=== PATIENT | male | born 1960 | race Caucasian/White ===

== ENCOUNTER 2016-10-30 06:05 | Emergency (ER) | payer BC ==
[~2016-10-30] VITALS: Ht 185.4 cm; Wt 93.0 kg
[2016-10-30] MEDS ORDERED: DIAZ10TA PO (06:23)
--- NOTE | 2016-10-30 06:32 | NUR ---
PT AWAITING FOR MSE. SLURRED SPEECH, SIDERAILS UP.
--- NOTE | 2016-10-30 06:59 | NUR ---
PT REFUSED TO STAY, TAXI ARRIVED AND PT AMBULATED W/O DIFF, REFUSED TO WAIT FOR ACI.
[2016-10-30 07:01] VITALS: BP 131/90
== END 2016-10-30 07:02 | disposition home or self-care (01) ==
LOC: ER 06:05
DX: F10.129 Alcohol abuse with intoxication, unspecified (principal)
CPT/HCPCS: 99283; A4663

== ENCOUNTER 2017-06-21 16:21 | Inpatient (IN) | payer BC, OTHER ==
[~2017-06-21] VITALS: Ht 185.4 cm; Wt 95.3 kg
[~2017-06-21 16:21] MED LIST: DIAZ10TA PO
[2017-06-21] MEDS ORDERED: KETOROLAC TROMETHAMINE 30 MG INJ IM PRN (17:45)
[2017-06-21] MEDS ORDERED: LOPERAMIDE HCL 2 MG CAPSULE PO PRN ×2 (17:45)
[2017-06-21] MEDS ORDERED: MAG HYDROX/AL HYDROX/SIMETH 30 ML LIQUID UDC PO PRN (17:45)
[2017-06-21] MEDS ORDERED: ONDANSETRON 4 MG/2 ML VIAL IM PRN (17:45)
[2017-06-21] MEDS ORDERED: MAGNESIUM HYDROXIDE 30 ML LIQUID UDC PO PRN (17:45)
[2017-06-21] MEDS ORDERED: DIAZEPAM 10 MG TABLET PO PRN ×2 (17:45)
[2017-06-21] MEDS ORDERED: LORAZEPAM 2 MG/1 ML VIAL IM PRN (17:45)
[2017-06-21] MEDS ORDERED: MIRALAX 17 GM POWD.PACK PO PRN (17:45)
[2017-06-21] MEDS ORDERED: DIAZEPAM 5 MG TABLET PO PRN (17:45)
[2017-06-21] MEDS ORDERED: ACETAMINOPHEN 325 MG TABLET PO PRN (17:45)
[2017-06-21] MEDS ORDERED: ONDANSETRON ODT 4 MG TAB.RAPDIS SL PRN (17:45)
[2017-06-21] MEDS ORDERED: DICYCLOMINE HCL 20 MG TABLET PO PRN (17:45)
[2017-06-21] MEDS ORDERED: THIAMINE HCL 200 MG/2 ML VIAL IM ONE (17:45)
[2017-06-21 17:53] VITALS: BP 141/89
[2017-06-21] MEDS ORDERED: AMLO5TAB4 PO (18:00)
[2017-06-21] MEDS ORDERED: ARIP5TAB10 PO (18:04)
[2017-06-21] MEDS ORDERED: QUET200T PO (18:04)
[2017-06-21] MEDS ORDERED: TRAZ-147 PO (18:04)
[2017-06-21 18:21] LABS: *AMPHETAMINE, URINE NEGATIVE (NEGATIVE); *BARBITURATE, URINE NEGATIVE (NEGATIVE); *CANNABINOID, URINE NEGATIVE (NEGATIVE); *COCCAINE, URINE NEGATIVE (NEGATIVE); *OPIATE, URINE POSITIVE (NEGATIVE); *PHENCYCLIDINE SCREEN,URINE NEGATIVE (NEGATIVE)
[2017-06-21] MEDS: DIAZEPAM 10 MG TABLET PO SCH ×2 (18:40→20:56)
[2017-06-21] MEDS: CLONIDINE HCL 0.1 MG TABLET PO PRN (19:34)
[2017-06-21 20:00] VITALS: BP 174/121
[2017-06-21 20:08] LABS: BASOPHILS % (AUTO) 0.8 % (0.0-2.0); EOSINOPHILS # (AUTO) 0.3 K/uL (0.0-0.7); HEMATOCRIT 40.8 % (36.7-47.1); HEMOGLOBIN 14.1 g/dL (12.5-16.3); LYMPHOCYTES # (AUTO) 2.1 K/uL (20.0-40.0); LYMPHOCYTES % (AUTO) 33.5 % (20.5-51.5); MEAN CORPUSCULAR HEMOGLOBIN 32.7 uug (23.8-33.4); MEAN CORPUSCULAR HGB CONC 35 g/dL (32.5-36.3); MEAN CORPUSCULAR VOLUME 94.2 fL (73.0-96.2); MONOCYTES # (AUTO) 0.4 K/uL (2.0-10.0); MONOCYTES % (AUTO) 5.8 % (0.0-11.0); NEUTROPHILS # (AUTO) 3.4 K/uL (1.8-8.9); NEUTROPHILS % (AUTO) 54.9 % (38.5-71.5); PLATELET COUNT (AUTO) 238 K/uL (152-348); RED BLOOD CELL COUNT(AUTO) 4.33 MIL/uL (4.06-5.63); WHITE BLOOD COUNT (AUTO) 6.2 K/uL (3.6-10.2)
[2017-06-21 20:28] LABS: ETHANOL < 3 MG/DL (0-0)
[2017-06-21 20:33] LABS: ALANINE AMINOTRANSFERASE 29 U/L (16-63); ALKALINE PHOSPHATASE 54 U/L (50-136); ASPARTATE AMINOTRANSFERASE 22 U/L (15-37); BILIRUBIN,TOTAL 0.3 mg/dL (0.2-1.0); CARBON DIOXIDE 27 mmol/L (21-32); CHLORIDE 103 mmol/L (98-107); CREATININE 1.2 mg/dL (0.6-1.3); GLUCOSE 124 mg/dL (74-106); TOTAL PROTEIN, SERUM 7.1 g/dL (6.4-8.2); UREA NITROGEN, BLOOD 19 mg/dL (7-18)
[2017-06-21] MEDS: GABAPENTIN 300 MG CAPSULE PO SCH (20:56)
[2017-06-21] MEDS: METHOCARBAMOL 750 MG TABLET PO PRN (20:56)
[2017-06-22] VITALS (8 sets, daily range): BP systolic 115–161; BP diastolic 68–104
[2017-06-22] MEDS: MULTIVITAMINS,THERAPEUTIC TABLET PO SCH (08:25)
[2017-06-22] MEDS: GABAPENTIN 300 MG CAPSULE PO SCH ×2 (08:25→21:28)
[2017-06-22] MEDS: THIAMINE HCL 100 MG TABLET PO SCH (08:26)
[2017-06-22] MEDS: METHOCARBAMOL 750 MG TABLET PO PRN ×2 (08:26→17:34)
[2017-06-22] MEDS: FOLIC ACID 1 MG TABLET PO SCH (08:26)
[2017-06-22] MEDS: CLONIDINE HCL 0.1 MG TABLET PO PRN ×2 (08:26→17:41)
[2017-06-22] MEDS: AMLODIPINE 5 MG TABLET PO SCH (08:26)
[2017-06-22] MEDS: DIAZEPAM 10 MG TABLET PO SCH ×4 (08:30→21:28)
[2017-06-22] MEDS ORDERED: TUBERCULIN,PURIF.PROT.DERIV. 5 TU/0.1 ML TEST ID ONE (09:00)
[2017-06-22] MEDS ORDERED: QUETIAPINE FUMARATE 200 MG TABLET PO SCH (21:00)
[2017-06-22] MEDS: TRAZODONE 100 MG TABLET PO SCH (21:28)
[2017-06-22] MEDS: QUETIAPINE FUMARATE 100 MG TABLET PO SCH (21:29)
[2017-06-22] MEDS: CLONIDINE HCL 0.1 MG TABLET PO SCH (21:29)
[2017-06-23] MEDS: IBUPROFEN 600 MG TABLET PO PRN (02:21)
[2017-06-23] MEDS: DIAZEPAM 5 MG TABLET PO SCH ×3 (08:10→16:40)
[2017-06-23] MEDS: THIAMINE HCL 100 MG TABLET PO SCH (08:10)
[2017-06-23] MEDS: AMLODIPINE 5 MG TABLET PO SCH (08:10)
[2017-06-23] MEDS: FOLIC ACID 1 MG TABLET PO SCH (08:10)
[2017-06-23] MEDS: CLONIDINE HCL 0.1 MG TABLET PO SCH ×2 (08:10→20:42)
[2017-06-23] MEDS: GABAPENTIN 300 MG CAPSULE PO SCH ×2 (08:10→20:43)
[2017-06-23] MEDS: MULTIVITAMINS,THERAPEUTIC TABLET PO SCH (08:11)
[2017-06-23 08:31] VITALS: BP 158/104
[2017-06-23 12:00] VITALS: BP 138/90
[2017-06-23 12:06] LABS: HEPATITIS B SURFACE AG Negative (Negative)
[2017-06-23 16:00] VITALS: BP 154/106
[2017-06-23] MEDS: CLONIDINE HCL 0.1 MG TABLET PO PRN (17:35)
[2017-06-23 18:51] VITALS: BP 137/87
[2017-06-23 20:00] VITALS: BP 149/104
[2017-06-23] MEDS: QUETIAPINE FUMARATE 100 MG TABLET PO SCH (20:42)
[2017-06-23] MEDS: TRAZODONE 100 MG TABLET PO SCH (20:43)
[2017-06-23] MEDS ORDERED: DIAZEPAM 10 MG TABLET PO SCH (21:00)
[2017-06-23] MEDS ORDERED: AMLODIPINE 5 MG TABLET PO SCH (21:00)
[2017-06-24] VITALS: BP 159/107
[2017-06-24] MEDS: hydrALAZINE HCL 50 MG TABLET PO PRN (00:52)
[2017-06-24] MEDS: diphenhydrAMINE 50 MG CAPSULE PO PRN (01:15)
[2017-06-24 04:00] VITALS: BP 135/90
[2017-06-24] MEDS: MULTIVITAMINS,THERAPEUTIC TABLET PO SCH (08:36)
[2017-06-24] MEDS: DIAZEPAM 5 MG TABLET PO SCH ×3 (08:36→20:57)
[2017-06-24] MEDS: FOLIC ACID 1 MG TABLET PO SCH (08:36)
[2017-06-24] MEDS: CLONIDINE HCL 0.1 MG TABLET PO SCH ×3 (08:36→20:58)
[2017-06-24] MEDS: GABAPENTIN 300 MG CAPSULE PO SCH ×3 (08:36→20:58)
[2017-06-24] MEDS: THIAMINE HCL 100 MG TABLET PO SCH (08:36)
[2017-06-24] MEDS: AMLODIPINE 10 MG TABLET PO SCH (08:37)
[2017-06-24 09:26] VITALS: BP 152/104
[2017-06-24] MEDS: IBUPROFEN 600 MG TABLET PO PRN (11:30)
[2017-06-24 12:36] VITALS: BP 138/67
[2017-06-24 18:06] VITALS: BP 138/96
[2017-06-24 20:00] VITALS: BP 137/95
[2017-06-24] MEDS: QUETIAPINE FUMARATE 100 MG TABLET PO SCH (20:58)
[2017-06-24] MEDS: TRAZODONE 100 MG TABLET PO SCH (20:58)
[2017-06-25] VITALS (7 sets, daily range): BP systolic 137–147; BP diastolic 82–104
[2017-06-25] MEDS: CLONIDINE HCL 0.1 MG TABLET PO PRN ×2 (04:39→19:39)
[2017-06-25] MEDS: GABAPENTIN 300 MG CAPSULE PO SCH ×3 (08:33→20:45)
[2017-06-25] MEDS: CLONIDINE HCL 0.1 MG TABLET PO SCH ×3 (08:33→20:43)
[2017-06-25] MEDS: MULTIVITAMINS,THERAPEUTIC TABLET PO SCH (08:33)
[2017-06-25] MEDS: FOLIC ACID 1 MG TABLET PO SCH (08:34)
[2017-06-25] MEDS: AMLODIPINE 10 MG TABLET PO SCH (08:34)
[2017-06-25] MEDS: THIAMINE HCL 100 MG TABLET PO SCH (08:34)
[2017-06-25] MEDS: DIAZEPAM 5 MG TABLET PO SCH ×2 (08:34→20:44)
[2017-06-25] MEDS: IBUPROFEN 600 MG TABLET PO PRN (09:31)
[2017-06-25] MEDS: hydrALAZINE HCL 50 MG TABLET PO PRN (16:45)
[2017-06-25] MEDS: diphenhydrAMINE 50 MG CAPSULE PO PRN (20:44)
[2017-06-25] MEDS: QUETIAPINE FUMARATE 100 MG TABLET PO SCH (20:44)
[2017-06-25] MEDS: TRAZODONE 100 MG TABLET PO SCH (20:44)
[2017-06-26] MEDS: CLONIDINE HCL 0.1 MG TABLET PO PRN (03:19)
[2017-06-26 03:20] VITALS: BP 148/106
[2017-06-26 04:19] VITALS: BP 131/84
[2017-06-26 08:00] VITALS: BP 166/106
[2017-06-26] MEDS: THIAMINE HCL 100 MG TABLET PO SCH (08:59)
[2017-06-26] MEDS: MULTIVITAMINS,THERAPEUTIC TABLET PO SCH (08:59)
[2017-06-26] MEDS: AMLODIPINE 10 MG TABLET PO SCH (08:59)
[2017-06-26] MEDS: CLONIDINE HCL 0.1 MG TABLET PO SCH ×3 (08:59→20:37)
[2017-06-26] MEDS: GABAPENTIN 300 MG CAPSULE PO SCH ×3 (08:59→20:36)
[2017-06-26] MEDS: FOLIC ACID 1 MG TABLET PO SCH (08:59)
[2017-06-26] MEDS ORDERED: DIAZEPAM 5 MG TABLET PO SCH (09:00)
[2017-06-26 12:00] VITALS: BP 127/94
[2017-06-26 17:00] VITALS: BP 157/98
[2017-06-26] MEDS: hydrALAZINE HCL 50 MG TABLET PO PRN ×2 (17:12→23:48)
[2017-06-26] MEDS ORDERED: CLON0.1T14 PO (18:08)
[2017-06-26] MEDS ORDERED: AMLO10TA2 PO (18:08)
[2017-06-26] MEDS ORDERED: DICY20TA28 PO (18:08)
[2017-06-26] MEDS ORDERED: IBUP-1955 PO (18:08)
[2017-06-26] MEDS ORDERED: METH-406 PO (18:08)
[2017-06-26] MEDS ORDERED: GABA-534 PO ×2 (18:08)
[2017-06-26] MEDS ORDERED: DIPH50CA37 PO (18:08)
[2017-06-26 20:00] VITALS: BP 149/95
[2017-06-26] MEDS: TRAZODONE 100 MG TABLET PO SCH (20:36)
[2017-06-26] MEDS: QUETIAPINE FUMARATE 100 MG TABLET PO SCH (20:37)
[2017-06-27] VITALS: BP 135/101
[2017-06-27 00:48] VITALS: BP 109/65
[2017-06-27 04:00] VITALS: BP 138/94
[2017-06-27 08:00] VITALS: BP 139/90
[2017-06-27 08:11] VITALS: BP 139/98
[2017-06-27] MEDS: AMLODIPINE 10 MG TABLET PO SCH (08:11)
[2017-06-27] MEDS: FOLIC ACID 1 MG TABLET PO SCH (08:11)
[2017-06-27] MEDS: MULTIVITAMINS,THERAPEUTIC TABLET PO SCH (08:11)
[2017-06-27] MEDS: THIAMINE HCL 100 MG TABLET PO SCH (08:11)
[2017-06-27] MEDS: GABAPENTIN 300 MG CAPSULE PO SCH (08:11)
[2017-06-27] MEDS: CLONIDINE HCL 0.1 MG TABLET PO SCH (08:11)
== END 2017-06-27 09:17 | disposition home or self-care (01) | DRG 895 ==
LOC: SRC 16:21
PROVIDERS: ADMIT Internal Medicine; ATTEND Internal Medicine
PROC: HZ2ZZZZ Detoxification Services for Substance Abuse Treatment (ICD-10-PCS; principal; 2017-06-21)
PROC: HZ41ZZZ Group Counseling for Substance Abuse Treatment, Behavioral (ICD-10-PCS; 2017-06-23)
PROC: HZ31ZZZ Individual Counseling for Substance Abuse Treatment, Behavioral (ICD-10-PCS; 2017-06-24)
DX: F10.232 Alcohol dependence with withdrawal with perceptual disturbance (principal); I15.9 Secondary hypertension, unspecified; F31.9 Bipolar disorder, unspecified; F13.10 Sedative, hypnotic or anxiolytic abuse, uncomplicated; F11.23 Opioid dependence with withdrawal; E86.0 Dehydration; Y90.0 Blood alcohol level of less than 20 mg/100 ml; Z79.899 Other long term (current) drug therapy; Z81.1 Family history of alcohol abuse and dependence; Z90.49 Acquired absence of other specified parts of digestive tract; F90.9 Attention-deficit hyperactivity disorder, unspecified type; Z82.49 Family history of ischemic heart disease and other diseases of the circulatory system; Z87.01 Personal history of pneumonia (recurrent); F17.220 Nicotine dependence, chewing tobacco, uncomplicated; G47.00 Insomnia, unspecified; F41.9 Anxiety disorder, unspecified
CPT/HCPCS: 36415; 70030-TC; 80307; 80346; 80361; 83735; 85025; 86580; 86592; 86705; 86803; 87340; 87806; A4663; G0480; J1885; J3411; Q0163

== ENCOUNTER 2017-09-05 08:47 | Inpatient (IN) | payer BC, OTHER ==
[~2017-09-05] VITALS: Ht 185.4 cm; Wt 95.3 kg
[~2017-09-05 08:47] MED LIST changes: +AMLO10TA2 PO; +CLON0.1T14 PO; -DIAZ10TA PO; +DICY20TA28 PO; +DIPH50CA37 PO; +GABA-534 PO; +IBUP-1955 PO; +METH-406 PO; +QUET200T PO; +TRAZ-214 PO
--- NOTE | 2017-09-05 13:30 | NUR ---
PREADMISSION Pt 57 y/o male admitted for etoh and opiate withdrawal. Pt came from home and lives with his and kids. Pt alert and oriented to name, place, and time. Perrla. Skin warm and moist to touch. Respirations even and unlabored. Resting bilateral hand tremors noted. Observed pt tapping foot. Pt appears fidgety and uneasy with pressured responses noted. Pt states NKA. Pt is not intoxicated. Explained unit rules to pt with acknowledgment.
--- NOTE | 2017-09-05 13:42 | NUR ---
ADMISSION Pt 57 y/o male admitted for etoh and opiate withdrawal. Pt came from home and lives with his and kids. Pt alert and oriented to name, place, and time. Perrla. Skin warm and moist to touch. Respirations even and unlabored. Resting bilateral hand tremors noted. Observed pt tapping foot. Pt appears fidgety and uneasy with pressured responses noted. Pt states NKA. Pt is not intoxicated. Pt reported he is drinking : - vodka 1 pint/ day x 1.5 months and last time used on 09/04/17 and had 1 pint. total 16 years. -[place] po 10mg pills and takes 15-20 pills /day x 8 years. Last took 09/04/17 20 pills. Total 8 years. Pt also reports have HTN (2005), asthma. Pt denies any seizure history. Skin is clear. Pt states he drinks etoh because of stress, anxiety , and depression. Pt states the etoh is significantly impairingPt also stated he is using the [place] because of chronic pain from injury sustained around 2003. Pt states he wants to learn how to deal with stress and also anxiety, depression, stress, and family are triggers to relapse. Pt states as a results from etoh, he got a DUI on 02/05/17. Pt states attempted to get sober 10 times. Pt states"I've identified the major form of anxiety and stress." Pt states he has better coping skills now. Pt denies every having a seizure, withdrawal induced delirium, or withdrawal induced cardiac complications. But pt stated he was drinking etoh too much some time in 2003 and blacked out and fell down the stairs injuring his ribs. Pt's treatment history: [facility] in 05/2017 for several days and was able to stay sober for 1 month before relapse, [facility] ( pt does not remember when he was there) and was able to stay sober for 1 month before relapse, and was [place] but does not remember when and was also only able to remain sober 1 month before relapse. Pt denies any SI/SA/HI. Pt denies ever being put on a 5150. Pt states his withdrawal symptoms are : anxiety, runny nose, diarrhea, and depression. Initial DG=310/94 P=94 T=98.0 R=18 O2=95%@ra. Initial cows=9 ciwa=12. Pt was seen and evaluated by MD. Pt started on a 5 day valium taper today, prn ativan, and prn subutex. Oriented pt to unit and room. Addendum: 09/06/17 at 1122 by KARLIE WILSON RN ADDITIONAL Pt clarified more substances he used - Klonopin po unspecified dose x1 day. Last took in morning on 09/03/17. Pt states he received it from a friend. - Adderall po unspecified dose x1 day. Last took in morning on 09/03/17. Pt states he received it from a friend. Medical history: anxiety, bipolar, ADHD
[2017-09-05] MEDS ORDERED: 5 DAY TAPER VALIUM-SERENITY PROTOCOL PO PRN (13:45)
[2017-09-05] MEDS ORDERED: ONDANSETRON ODT 4 MG TAB.RAPDIS SL PRN (14:00)
[2017-09-05] MEDS ORDERED: BUPRENORPHINE HCL 2 MG TAB.SUBL SL PRN (14:00)
[2017-09-05] MEDS ORDERED: HYDROXYZINE PAMOATE 25 MG CAPSULE PO PRN (14:00)
[2017-09-05] MEDS ORDERED: METHOCARBAMOL 750 MG TABLET PO PRN (14:00)
[2017-09-05] MEDS ORDERED: IBUPROFEN 600 MG TABLET PO PRN (14:00)
[2017-09-05] MEDS ORDERED: LORAZEPAM 1 MG TABLET PO PRN ×2 (14:00)
[2017-09-05] MEDS ORDERED: THIAMINE HCL 200 MG/2 ML VIAL IM ONE (14:00)
[2017-09-05] MEDS ORDERED: MAG HYDROX/AL HYDROX/SIMETH 30 ML LIQUID UDC PO PRN (14:00)
[2017-09-05] MEDS ORDERED: MIRALAX 17 GM POWD.PACK PO PRN (14:00)
[2017-09-05] MEDS ORDERED: ONDANSETRON 4 MG/2 ML VIAL IM PRN (14:00)
[2017-09-05] MEDS ORDERED: DICYCLOMINE HCL 20 MG TABLET PO PRN (14:00)
[2017-09-05] MEDS ORDERED: MAGNESIUM HYDROXIDE 30 ML LIQUID UDC PO PRN (14:00)
[2017-09-05] MEDS ORDERED: LORAZEPAM 2 MG/1 ML VIAL IM PRN (14:00)
[2017-09-05] MEDS ORDERED: LOPERAMIDE HCL 2 MG CAPSULE PO PRN ×2 (14:00)
[2017-09-05 14:53] LABS: BASOPHILS % (AUTO) 0.3 % (0.0-2.0); EOSINOPHILS # (AUTO) 0.1 K/uL (0.0-0.7); EOSINOPHILS % (AUTO) 1.5 % (0.0-7.0); HEMATOCRIT 42.1 % (36.7-47.1); HEMOGLOBIN 14.3 g/dL (12.5-16.3); LYMPHOCYTES # (AUTO) 2.1 K/uL (20.0-40.0); MEAN CORPUSCULAR HEMOGLOBIN 32.3 uug (23.8-33.4); MEAN CORPUSCULAR HGB CONC 34 g/dL (32.5-36.3); MEAN CORPUSCULAR VOLUME 95.4 fL (73.0-96.2); MONOCYTES # (AUTO) 0.4 K/uL (2.0-10.0); NEUTROPHILS # (AUTO) 4.3 K/uL (1.8-8.9); NEUTROPHILS % (AUTO) 62.2 % (38.5-71.5); PLATELET COUNT (AUTO) 190 K/uL (152-348); RED BLOOD CELL COUNT(AUTO) 4.42 MIL/uL (4.06-5.63)
[2017-09-05 15:04] LABS: ALANINE AMINOTRANSFERASE 46 U/L (16-63); ALKALINE PHOSPHATASE 44 U/L (50-136); AMYLASE 18 U/L (25-115); ASPARTATE AMINOTRANSFERASE 28 U/L (15-37); BILIRUBIN,TOTAL 0.4 mg/dL (0.2-1.0); CARBON DIOXIDE 27 mmol/L (21-32); CHLORIDE 100 mmol/L (98-107); CREATININE 1.1 mg/dL (0.6-1.3); GLUCOSE 126 mg/dL (74-106); LIPASE 112 U/L (73-393); MAGNESIUM 1.9 mg/dL (1.8-2.4); POTASSIUM 4.6 mmol/L (3.5-5.1); TOTAL PROTEIN, SERUM 7.1 g/dL (6.4-8.2); UREA NITROGEN, BLOOD 16 mg/dL (7-18)
[2017-09-05 15:09] LABS: ETHANOL < 3 MG/DL (0-0)
[2017-09-05] MEDS: CLONIDINE HCL 0.1 MG TABLET PO PRN (15:37)
[2017-09-05] MEDS: DIAZEPAM 10 MG TABLET PO SCH ×4 (15:37→22:33)
--- NOTE | 2017-09-05 15:42 | NUR ---
PRN CATAPRES Pt anxious and restless. Not able to sit still. Catapres po prn per MD order given and tolerated well.
[2017-09-05 15:44] LABS: *AMPHETAMINE, URINE POSITIVE (NEGATIVE); *BARBITURATE, URINE NEGATIVE (NEGATIVE); *CANNABINOID, URINE NEGATIVE (NEGATIVE); *COCCAINE, URINE NEGATIVE (NEGATIVE); *OPIATE, URINE POSITIVE (NEGATIVE); *PHENCYCLIDINE SCREEN,URINE NEGATIVE (NEGATIVE)
[2017-09-05 16:00] VITALS: BP 153/94
--- NOTE | 2017-09-05 16:42 | NUR ---
PRN CATAPRES EVAL Pt states anxiety has decreased.
--- NOTE | 2017-09-05 18:43 | NUR ---
END OF SHIFT Pt 57 y/o male admitted for etoh and opiate withdrawal. Pt alert and oriented to name, place, and time. Perrla. Skin warm and moist to touch. Respirations even and unlabored. Resting bilateral hand tremors noted. Pt appears disheveled. Empty water bottles scattered throughout the room. Encouraged to maintain hygiene. Pt anxious and restless this afternoon. Pt observed mostly isolative to room today. Pt did not attend group activity. Pt was seen by MD today. Pt medication compliant. Pt is on a 5 day valium taper and is on day. Last ciwa =12 @1600. Bed on lowest position with side rails x2 up for safety. Pt received catapres po prn per MD order or anxiety this afternoon. Call light within reach.
--- NOTE | 2017-09-05 19:11 | NUR ---
Start of shift note Received report from day shift nurse. Pt is a 57 yo male, A+Ox4, presenting to [facility] for ETOH/Opiate withdrawal. Pt noted with restlessness, agitation, and anxiety. Pt has HX of HTN and Asthma which will be monitored during shift. Pt is on 5 day Valium taper, PRN Ativan, and PRN Subutex, tolerated well. Respirations even and unlabored. Will continue to monitor.
--- NOTE | 2017-09-05 20:02 | NUR ---
COWS: 8 and CIWA: 9. Pt noted with pulse between 81-100, chills, restlessness, enlarged pupils, fine tremors, anxiety, agitation, and sweat on forehead. Respirations even and unlabored. Will continue to monitor.
[2017-09-05 20:05] VITALS: BP 132/93
[2017-09-05] MEDS ORDERED: QUETIAPINE FUMARATE 100 MG TABLET PO SCH (21:00)
[2017-09-05] MEDS: TRAZODONE 100 MG TABLET PO SCH (22:02)
[2017-09-05] MEDS: QUETIAPINE FUMARATE 200 MG TABLET PO SCH (22:03)
[2017-09-05] MEDS: ARIPIPRAZOLE 5 MG TABLET PO SCH (22:03)
--- NOTE | 2017-09-06 00:27 | NUR ---
V/S refused and COWS and CIWA deferred for sleep. Respirations even and unlabored. Will continue to monitor.
--- NOTE | 2017-09-06 04:19 | NUR ---
V/S refused and CIWA and COWS deferred for sleep. Respirations even and unlabored. Will continue to monitor.
--- NOTE | 2017-09-06 06:58 | NUR ---
End of shift note Pt was continuously noted with agitation, restlessness, anxiety, fine tremors, and sweat on forehead. Pt remained in room for majority of shift except to get food from the kitchen and to go smoke on smoking patio. Pt remained cooperative and compliant with all aspects of treatment. Pt was not given any PRN medications during shift. Pt is on 5 day Valium taper, PRN Ativan, and PRN Subutex, tolerated well. Pt slept for a total of 5 HRS. Last COWS: 8 and Last CIWA: 9 @2000. Respirations even and unlabored. Will endorse to day shift nurse.
--- NOTE | 2017-09-06 07:28 | NUR ---
START OF SHIFT Pt 57 y/o male admitted for etoh and opiate withdrawal. Pt alert and oriented to name, place, and time. Perrla. Skin warm and moist to touch. Respirations even and unlabored. Resting bilateral hand tremors noted. Pt appears disheveled. Food wrappings and empty drink bottles scattered throughout the room. Encouraged to maintain hygiene. It was reported that pt slept for 5 hours last night. Last reported cows=8 ciwa=9 @ 1999. Pt is on a 5 day valium taper and is on day 2. Pt also on a prn ativan and prn subutex. Bed on lowest position with side rails x2 up for safety. Call light within reach.
[2017-09-06 08:00] VITALS: BP 165/109
--- NOTE | 2017-09-06 08:00 | NUR ---
CIWA/COWS ASSESSMENT cows=10 ciwa=11. Pt anxious and restless, fidgety in bed. Nasal congestion noted. Resting bilateral hand tremors noted. Pt irritable. Pt also with complaints of chills/ sweats.
[2017-09-06] MEDS: FOLIC ACID 1 MG TABLET PO SCH (08:11)
[2017-09-06] MEDS: THIAMINE HCL 100 MG TABLET PO SCH (08:11)
[2017-09-06] MEDS: DIAZEPAM 10 MG TABLET PO SCH ×3 (08:11→21:02)
[2017-09-06] MEDS: CLONIDINE HCL 0.1 MG TABLET PO PRN ×2 (08:11→13:09)
[2017-09-06] MEDS: MULTIVITAMINS,THERAPEUTIC TABLET PO SCH (08:11)
--- NOTE | 2017-09-06 08:27 | NUR ---
PRN CATAPRES Pt with nb=659/109. Catapres po prn per MD order given and tolerated well.
[2017-09-06] MEDS ORDERED: TUBERCULIN,PURIF.PROT.DERIV. 5 TU/0.1 ML TEST ID ONE (09:00)
--- NOTE | 2017-09-06 09:27 | NUR ---
PRN MARRY Pt with vh=572/104. MD aware with change to catapres prn and started norvasc 10mg po daily. Addendum: 09/06/17 at 1207 by KARLIE WILSON RN title correction PRN CATMADELAINE DILLARD
[2017-09-06] MEDS ORDERED: METHOCARBAMOL 750 MG TABLET PO PRN (11:30)
[2017-09-06] MEDS ORDERED: DICYCLOMINE HCL 20 MG TABLET PO PRN (11:30)
[2017-09-06] MEDS ORDERED: diphenhydrAMINE 50 MG CAPSULE PO PRN (11:30)
[2017-09-06] MEDS ORDERED: CLONIDINE HCL 0.1 MG TABLET PO PRN (11:30)
[2017-09-06] MEDS ORDERED: CLON0.1T14 PO (11:39)
[2017-09-06] MEDS ORDERED: AMLO10TA2 PO (11:39)
[2017-09-06] MEDS ORDERED: AMLODIPINE 10 MG TABLET PO SCH (11:45)
[2017-09-06] MEDS: AMLODIPINE 10 MG TABLET PO SCH (11:46)
[2017-09-06 12:00] VITALS: BP 161/104
--- NOTE | 2017-09-06 12:00 | NUR ---
CIWA/COWS ASSESSMENT cows=11 ciwa=11. Pt anxious and restless, fidgety in bed. Nasal congestion noted. Pt easily irritable and agitated, observed clenching teeth at times. Resting bilateral hand tremors noted. Pt also with complaints of chills/ sweats.
[2017-09-06 13:10] LABS: HEPATITIS B SURFACE AG Negative (Negative)
--- NOTE | 2017-09-06 13:10 | NUR ---
PRN CATAPRES ATIVAN Pt with ciwa=17. Pt irritable and agitated observed clenching teeth. Resting bilateral hand tremors noted. Pt cannot sit still. ativan 2mg po prn per MD order given and tolerated well. Pt with jy=726/104. Pt anxious and restless. Catapress po prn per MD order given and tolerated well.
--- NOTE | 2017-09-06 14:10 | NUR ---
PRN CATAPRES ATIVAN EVAL Pt with nw=971/100. ciwa=10. Pt irritable. Pt sitting still with some movement. Bilateral hand tremors. Pt states feels anxious but not as much as before.
[2017-09-06] MEDS: GABAPENTIN 300 MG CAPSULE PO SCH ×2 (14:14→21:02)
[2017-09-06 16:00] VITALS: BP 154/100
--- NOTE | 2017-09-06 16:00 | NUR ---
CIWA/COWS ASSESSMENT cows=11 ciwa=11. Pt anxious and restless, not able to lay still in bed. Pt easily irritable and agitated. Resting bilateral hand tremors noted. Pt with flat affect. Clenching teeth at times.
[2017-09-06 16:50] VITALS: BP 148/99
--- NOTE | 2017-09-06 18:23 | NUR ---
END OF SHIFT Pt 57 y/o male admitted for etoh and opiate withdrawal. Pt alert and oriented to name, place, and time. Perrla. Skin warm and moist to touch. Respirations even and unlabored. Resting bilateral hand tremors noted. Pt appears disheveled. Clothes and food wrappings scattered throughout the room. Encouraged to maintain hygiene. Pt irritable and agitated this morning. Pt observed mostly isolative to room today. Pt did not attend group activity. Pt was seen by MD today. Pt medication compliant. Pt is on a 5 day valium taper and is on day 2. Last ciwa =10@1600. Last cows=11@1600. Bed on lowest position with side rails x2 up for safety. Call light within reach.
[2017-09-06 18:49] VITALS: BP 148/99
--- NOTE | 2017-09-06 19:14 | NUR ---
Start of shift note Received report from day shift nurse. Pt is a 57 yo male, A+Ox4, presenting to [facility] for ETOH/Opiate withdrawal. Pt noted to be anxious, agitated, and restless. Pt has HX of HTN, Asthma, Anxiety, Bipolar, and ADHD which will be monitored during shift. Pt is on 5 day Valium, PRN Ativan, and PRN Subutex, tolerated well. Respirations even and unlabored. Will continue to monitor.
[2017-09-06 20:14] VITALS: BP 147/96
--- NOTE | 2017-09-06 20:14 | NUR ---
COWS: 10 and CIWA: 10. Pt noted with pulse between 81-100, chills, restlessness, enlarged pupils, mild discomfort, mild GI upset, fine tremors, yawning, anxiety, agitation, and sweat on forehead. Respirations even and unlabored. Will continue to monitor.
[2017-09-06] MEDS: QUETIAPINE FUMARATE 200 MG TABLET PO SCH (21:02)
[2017-09-06] MEDS: TRAZODONE 100 MG TABLET PO SCH (21:02)
[2017-09-06] MEDS: ARIPIPRAZOLE 5 MG TABLET PO SCH (21:02)
[2017-09-06] MEDS: IBUPROFEN 600 MG TABLET PO PRN (21:47)
--- NOTE | 2017-09-06 21:47 | NUR ---
PRN Motrin Pt reported 6/10 headache. Patient restless in bed with facial grimacing noted. PRN Motrin 600mg PO administered as ordered. Will monitor for effectiveness of medication.
--- NOTE | 2017-09-06 22:40 | NUR ---
PRN Motrin Reassessment Medication effective. Pt expresses reduction of headache to 3/10. No s/s of ASE noted at this time. Respirations even and unlabored. Will continue to monitor.
[2017-09-07] VITALS (8 sets, daily range): BP systolic 123–166; BP diastolic 72–118
--- NOTE | 2017-09-07 00:20 | NUR ---
V/S refused and CIWA and COWS deferred for sleep. Respirations even and unlabored. Will continue to monitor.
--- NOTE | 2017-09-07 02:41 | NUR ---
PRN TYLENOL AND CLONIDINE RE-ASSESSMENT PATIENT STATES TYLENOL HELPFUL. HEADACHE SUBSIDED AND PAIN IS TOLERABLE. PATIENT IS LESS ANXIOUS. BP IS NO 138/82. WILL CONTINUE TO MONITOR Addendum: 09/08/17 at 0543 by ARNOL ANTHONY LVN ERROR: WRONG TIME AND DATE
--- NOTE | 2017-09-07 04:22 | NUR ---
V/S refused and CIWA and COWS deferred for sleep. Respirations even and unlabored. Will continue to monitor.
--- NOTE | 2017-09-07 07:00 | NUR ---
End of shift note Pt was continuously noted with chills, restlessness, enlarged pupils, mild discomfort, fine tremors, yawning, anxiety, agitation, GI upset, and sweat on forehead. Pt remained in room for majority of shift except to get food from kitchen and to go smoke on smoking patio. Pt remained cooperative and compliant with all aspects of treatment. Pt was given PRN Motrin @2147. Pt is on 5 day Valium taper, PRN Ativan, and PRN Subutex, tolerated well. Pt slept for a total of 6 HRS. Last COWS: 10 and Last CIWA: 10 @1999. Respirations even and unlabored. Will endorse to day shift nurse.
--- NOTE | 2017-09-07 07:56 | NUR ---
Start of shift Patient 57 y/o male admitted for medically supervised withdrawal of ETOH, opiates, and benzos. He is on a 5 day Valium taper, PRN Ativan and PRN Subutex. He is tolerating well. His last COWS 10 and CIWA 10 at 1999. Pt A&O X4. Resp even and unlabored. Pt presents with moderate anxiety, mild agitation, restless, flushed face, sweating and chills, fine tremors, generalized body aches, back pain. Pt presents with flat affect and depressed mood. Encouraged pt to attend group therapies/sessions to learn new coping skills to prevent relapse. Pt reports NKA. FULL CODE. All safety precautions in place. Call light within reach. Bed lowest lock position. Fall precautions. Will continue to monitor for withdrawal symptoms.
[2017-09-07] MEDS: CLONIDINE HCL 0.1 MG TABLET PO PRN ×2 (08:21→09:49)
[2017-09-07] MEDS: MULTIVITAMINS,THERAPEUTIC TABLET PO SCH (08:21)
[2017-09-07] MEDS: IBUPROFEN 600 MG TABLET PO PRN ×2 (08:22→14:43)
[2017-09-07] MEDS: AMLODIPINE 10 MG TABLET PO SCH (08:22)
[2017-09-07] MEDS: DIAZEPAM 5 MG TABLET PO SCH ×4 (08:22→20:45)
[2017-09-07] MEDS: FOLIC ACID 1 MG TABLET PO SCH (08:22)
[2017-09-07] MEDS: GABAPENTIN 300 MG CAPSULE PO SCH ×3 (08:22→20:44)
[2017-09-07] MEDS: THIAMINE HCL 100 MG TABLET PO SCH (08:22)
[2017-09-07] MEDS: METHOCARBAMOL 500 MG TABLET PO PRN (08:23)
--- NOTE | 2017-09-07 08:26 | NUR ---
PRN CLONIDINE 0.1 MG PO FOR BP 166/111 PRN MOTRIN 600 MG PO FOR HEADACHE #5/10 PRN ROBAXIN 750 MG PO FOR GENERALIZED BODY ACHES AND BACK PAIN.
--- NOTE | 2017-09-07 09:30 | NUR ---
REASSESS CLONIDINE- BP REMAINS ELEVATED 150/116. DOSE NOT EFFECTIVE.
--- NOTE | 2017-09-07 09:31 | NUR ---
REASSESS MOTRIN- PT C/O HEAD ACHE #08/04. MEDICATION NOT AFFECTIVE. REASSESS ROBAXIN - PT REPORTS BODY ACHES IMPROVED.
--- NOTE | 2017-09-07 09:49 | NUR ---
PRN CLONIDINE 0.1 MG PO Q2 HOURS FOR HTN. BP 150/116
[2017-09-07] MEDS: ACETAMINOPHEN 325 MG TABLET PO PRN ×2 (09:54→16:22)
--- NOTE | 2017-09-07 09:55 | NUR ---
PRN TYLENOL 650 MG PO FOR HEADACHE #6/10 PRN VISTARIL 25 MG PO FOR ANXIETY
--- NOTE | 2017-09-07 10:50 | NUR ---
REASSESS CLONIDINE- BP REMAINS ELEVATED 155/111. CALLED AND NOTIFIED MD. DR. CHAMBERLAIN REPORTED HE WILL BE ON-SITE TO EVALUATE PT IN 10 MINUTES.
--- NOTE | 2017-09-07 10:55 | NUR ---
REASSES VISTARIL- PT REPORTS INCREASED ANXIETY, PACING HALLS, GROSS TREMORS, ELEVATED VITALS. MD NOTIFIED. REASSESS TYLENOL- HEADACHE REMAINS #08/04. MEDICATION NOT AFFECTIVE.
--- NOTE | 2017-09-07 12:00 | NUR ---
PRN HYDRALAZINE 10 MG PO FOR BP 160/109, HR 102
[2017-09-07] MEDS: hydrALAZINE HCL 10 MG TABLET PO PRN ×2 (12:02→20:46)
--- NOTE | 2017-09-07 13:00 | NUR ---
REASSESS HYDRALAZINE- BP IMPROVED 142/99. MEDICATION EFFECTIVE.
--- NOTE | 2017-09-07 13:19 | NUR ---
PRN medication; Patient reported 3 episodes of diarrhea. PRN Imodium 4mg PO given to prevent further diarrhea. Report given to primary nurse for re-assessment.
--- NOTE | 2017-09-07 14:20 | NUR ---
REASSESS IMODIUM- PT REPORTS DIARRHEA RESOLVED. NO MORE LOOSE STOOLS. MEDICATION EFFECTIVE.
--- NOTE | 2017-09-07 14:46 | NUR ---
PRN MOTRIN 600 MG PO FOR HEADACHE #7/10. PRN BENTYL 20 MG PO FOR STOMACH CRAMPS.
--- NOTE | 2017-09-07 15:45 | NUR ---
REASSESS MOTRIN- PT STATES HEADACHE #5-10 REASSESS BENTYL- STOMACH CRAMPS RESOLVED.
--- NOTE | 2017-09-07 16:25 | NUR ---
PRN TYLENOL 650 MG PO FOR HEADACHE #4-5/10
--- NOTE | 2017-09-07 17:25 | NUR ---
REASSESS TYLENOL- PT STATES HEADACHE REMAINS AT #4-5/10 MEDICATION MINIMALLY EFFECTIVE.
--- NOTE | 2017-09-07 18:34 | NUR ---
End of shift Patient 57 y/o male admitted for medically supervised withdrawal of ETOH, opiates, and benzos. He is on a 5 day Valium taper. He continues to have multiple side effects from detox. His last COWS 17 and CIWA 13 at 1600. Pt presents with moderate anxiety, agitation, restless, flushed face, sweating and chills, gross tremors, generalized body aches, headache and back pain. Pt presents with flat affect and depressed mood. Pt BP remained elevated throughout the day. PRN given today were; Clonidine, Motrin, Robaxin, Vistaril, Tylenol, Imodium, Bentyl and Hydralazine. Encouraged pt to attend group therapies/sessions to learn new coping skills to prevent relapse. Pt did not participate in group today. His withdrawal symptoms were too distracting. PO fluids 2338 ml, voids x4, BM x3. Pt reports NKA. FULL CODE. All safety precautions in place. Call light within reach. Bed lowest lock position. Fall precautions. Will continue to monitor for withdrawal symptoms. Will endorse to PM shift.
--- NOTE | 2017-09-07 19:30 | NUR ---
START OF SHIFT NOTE RECEIVED REPORT FROM DAY SHIFT NURSE. PATIENT IS A 57 YEAR OLD MALE ADMITTED FOR ETOH/OPIATE WITHDRAWAL. CONTINUE ON VALIUM TAPER. PATIENT WITH HISTORY OF HYPERTENSION. PATIENT HAD ELEVATED BLOOD PRESSURE AND WAS C/O HEADACHE DURING THE DAY. PATIENT WAS GIVEN PRN CLONIDINE X 2, MOTRIN X 2, TYLENOL X 2, ROBAXIN, HYDRALAZINE , VISTARIL , IMODIUM AND BENTYL. LAST COWS 17 AND CIWA 13. PATIENT PRESENTS WITH FLAT AFFECT, DEPRESSED MOOD, SAD, FLUSHED FACE, ANXIOUS, FIDGETY, RESTLESS, EYE AVOIDANT , DIFFICULTY CONCENTRATING, IRRITABLE , AGITATED, HEADACHE AND HAD ANOTHER EPISODE OF DIARRHEA. SAFETY MEASURES IN PLACE . CALL LIGHT IN REACH. WILL CONTINUE TO MONITOR
--- NOTE | 2017-09-07 19:44 | NUR ---
PRN IMODIUM ADMINISTRATION PATIENT C/O DIARRHEA . ENCOURAGE FLUIDS . WILL MONITOR FOR EFFECTIVENESS
--- NOTE | 2017-09-07 20:00 | NUR ---
COWS AND CIWA ASSESSMENT PATIENT PRESENTS WITH FLAT AFFECT, DEPRESSED MOOD, SAD, FLUSHED FACE, ANXIOUS, FIDGETY, RESTLESS, EYE AVOIDANT , DIFFICULTY CONCENTRATING, FINE TREMORS ON BILATERAL HANDS, IRRITABLE , AGITATED ,HEADACHE AND HAD ANOTHER EPISODE OF DIARRHEA. COWS 18 AND CIWA 19.
[2017-09-07] MEDS: ARIPIPRAZOLE 5 MG TABLET PO SCH (20:44)
[2017-09-07] MEDS: TRAZODONE 100 MG TABLET PO SCH (20:45)
[2017-09-07] MEDS: QUETIAPINE FUMARATE 200 MG TABLET PO SCH (20:45)
--- NOTE | 2017-09-07 20:46 | NUR ---
PRN HYDRALAZINE ADMINISTRATION PATIENT'S BLOOD PRESSURE IS 158/118 HR-95. WILL MONITOR FOR EFFECTIVENESS
--- NOTE | 2017-09-07 21:46 | NUR ---
PRN HYDRALAZINE RE-ASSESSMENT PATIENT'S BLOOD PRESSURE RECHECK . BP-140/94 AT THIS TIME. WILL CONTINUE TO MONITOR.
[2017-09-08] VITALS (8 sets, daily range): BP systolic 131–161; BP diastolic 82–111
--- NOTE | 2017-09-08 | NUR ---
COWS AND CIWA DEFERRED PATIENT SLEEPING . RESPIRATION EVEN AND UNLABORED. WILL CONTINUE TO MONITOR
[2017-09-08] MEDS: ACETAMINOPHEN 325 MG TABLET PO PRN ×2 (01:41→09:43)
--- NOTE | 2017-09-08 01:41 | NUR ---
COWS AND CIWA ASSESSMENT PATIENT WOKE UP ANXIOUS, SWEATING, RESTLESS, TREMULOUS, FACE FLUSHED C/O CHILLS, HEADACHE AND WANTING TO GO DOWN TO SMOKE. BP- 158/111. COWS 11 AND CIWA 12
--- NOTE | 2017-09-08 01:41 | NUR ---
PRN CLONIDINE AND TYLENOL ADMINISTRATION PATIENT C/O ANXIETY AND HEADACHE. BP-158/111. WILL MONITOR FOR EFFECTIVENESS
[2017-09-08] MEDS: CLONIDINE HCL 0.1 MG TABLET PO PRN ×3 (01:44→21:59)
--- NOTE | 2017-09-08 02:41 | NUR ---
PRN TYLENOL AND CLONIDINE RE-ASSESSMENT PATIENT STATES TYLENOL HELPFUL. HEADACHE SUBSIDED AND PAIN IS TOLERABLE. PATIENT IS LESS ANXIOUS. BP IS NO 138/82. WILL CONTINUE TO MONITOR
[2017-09-08] MEDS: diphenhydrAMINE 50 MG CAPSULE PO PRN ×2 (03:32→21:59)
--- NOTE | 2017-09-08 03:32 | NUR ---
PRN BENADRYL ADMINISTRATION PATIENT REQUESTS FOR SLEEP AID DUE TO DIFFICULTY GOING BACK TO SLEEP .WILL MONITOR FOR EFFECTIVENESS
--- NOTE | 2017-09-08 04:32 | NUR ---
PRN BENADRYL RE-ASSESSMENT PATIENT STILL AWAKE. BENADRYL INEFFECTIVE. PATIENT HE'LL KEEP TRYING.
--- NOTE | 2017-09-08 07:23 | NUR ---
END OF SHIFT NOTE PATIENT SLEPT 4 HOURS. FLUID INTAKE 1,605 ML. VOIDED X 2 . BM X 1. MONITORED PATIENT THROUGHOUT SHIFT. PATIENT SLEPT INTERMITTENTLY. PATIENT GOES DOWN TO SMOKE FREQUENTLY DURING SHIFT. SCHEDULED MEDICATION AND TAPER GIVEN ORDERED, NO ADVERSE REACTION . PATIENT WAS GIVEN PRN HYDRALAZINE AT 2046 FOR BP-158/118, EFFECTIVE AFTER AN HOUR. BP- 140/94 AFTER RE-ASSESSMENT. AT 0141, PATIENT C/O ANXIETY AND HEADACHE. BP NOTED 155/111, PRN CLONIDINE AND TYLENOL GIVEN, EFFECTIVE. BP WENT DOWN TO 138/82. PATIENT HAD DIFFICULTY GOING BACK TO SLEEP. PRN BENADRYL GIVEN AT 0331, INEFFECTIVE. SAFETY MEASURES IN PLACE . CALL LIGHT IN REACH. WILL CONTINUE TO MONITOR . LAST COWS 10 AND CI.
--- NOTE | 2017-09-08 07:40 | NUR ---
START OF SHIFT Rcvd endorse from ongoing nurse, client is in bed, sound asleep, easy to arouse RR 16, even, non-labored. He appears disheveled, flushed face and clammy skin. PRN medications administered and noted per protocol. Last CIWA / 10 @ 0400. Seizure precautions in place. Call light within reach. Will continue to monitor.
[2017-09-08] MEDS: METHOCARBAMOL 500 MG TABLET PO PRN (09:43)
[2017-09-08] MEDS: GABAPENTIN 300 MG CAPSULE PO SCH ×3 (09:43→21:59)
[2017-09-08] MEDS: AMLODIPINE 10 MG TABLET PO SCH (09:43)
[2017-09-08] MEDS: MULTIVITAMINS,THERAPEUTIC TABLET PO SCH (09:43)
[2017-09-08] MEDS: THIAMINE HCL 100 MG TABLET PO SCH (09:43)
--- NOTE | 2017-09-08 09:43 | NUR ---
PRN Robaxin 750mg PO for myalgia, Tylenol 650mg PO and Motrin 600mg PO for REID. Call light within reach.
[2017-09-08] MEDS: IBUPROFEN 600 MG TABLET PO PRN (09:44)
[2017-09-08] MEDS: FOLIC ACID 1 MG TABLET PO SCH (09:44)
[2017-09-08] MEDS: DIAZEPAM 5 MG TABLET PO SCH ×3 (09:44→21:59)
--- NOTE | 2017-09-08 09:45 | NUR ---
CIWA 16/COWS 11 Client presents with anxious mood, flat affect, tremors, sweats, agitation, difficulty concentrating, and avoidant gaze. Client reports pain on muscles and joints, restless legs, REID, nausea, decreased appetite, he feels very sad, and tired. Scheduled Valium 5mg PO administered. Call light within reach.
--- NOTE | 2017-09-08 10:43 | NUR ---
Reassess PRN Robaxin 750mg, Tylenol 650mg, and Motrin 600mg client reports slight relief from myalgia and REID. He is planning to attend group therapy this am. Call light within reach.
[2017-09-08] MEDS: hydrALAZINE HCL 10 MG TABLET PO PRN ×2 (12:46→21:58)
--- NOTE | 2017-09-08 12:46 | NUR ---
PRN Hydralazine HCl 10mg PO administered for BP 147/105. Client denies any RIED. Call light within reach.
--- NOTE | 2017-09-08 12:50 | NUR ---
CIWA 16 / COWS 10 Client present with anxiety, mb by increased BP 147/105, agitation, tremors, flushed face, nausea, clammy skin, restlessness, and difficulty concentrating. Will continue to monitor.
--- NOTE | 2017-09-08 13:28 | NUR ---
Client was prompted to attend group counseling sessions.
--- NOTE | 2017-09-08 13:46 | NUR ---
Reassess PRN Hydralazine HCl 10mg, BP 133/87. Call light within reach.
--- NOTE | 2017-09-08 16:45 | NUR ---
PRN Clonidine 01.mg PO administered for anxiety, agitation mb increased BP 145/105. [facility] Will continue to monitor.
--- NOTE | 2017-09-08 16:50 | NUR ---
CIWA 15 / COWS 11 Client present with anxiety, mb by increased BP 145/105, agitation, tremors, flushed face, nausea, clammy skin, restlessness, and difficulty concentrating. Will continue to monitor. PRN medication administered for anxiety, agitation.
--- NOTE | 2017-09-08 17:45 | NUR ---
Reassess PRN Clonidine 01.mg BP 133/96, P 78. Client continues to present with anxiety and agitation. Will continue to monitor.
--- NOTE | 2017-09-08 19:18 | NUR ---
END OF SHIFT Endorse client to incoming nurse, client is in room, a/o x 4, he continues to present with anxious mood, flat affect, agitation, tremors, flushed face, and difficulty concentrating. Last CIWA 15 / 11 @ 1600. Client is compliant with 2/3 of group therapy. Adequate PO fluid intake 2025ml, void x 5, stool x 1. Consumes 50-75% of meals. PRN administered and noted per protocol. Seizure precaution in place. call light within reach.
--- NOTE | 2017-09-08 19:30 | NUR ---
Start of Shift Pt admitted 09/05/17 for medically managed withdrawal from ETOH and Opiates. Pt is a Full Code, with NKAs and on a regular diet. Pt presents with a PMH of HTN, asthma, and a PPH of Anxiety, Bipolar D/o, and ADHD. Pt found in room, oriented x 4, but anxious and agitated/fidgety. Pt forehead with visible sweat, hands tremulous. Pt appears disheveled, with dirty clothes and clothes strewn about, odor in room. Pt is unshaven. Affect flat, thoughts loose and racing. Expression is worried with poor/avoidant eye contact. Pt appears older than stated age. Pt c/o H/A 2/10, yawning, not sleeping well previous night. Stress reduction and coping skills reviewed and pt educated, pt verbalizing acknowledgement. Full safety measures, fall and seizure, remain in place with bed in lowest position, locked and side rails up and padded x 2. Will monitor pt for duration of shift for any s/sxs of distress or w/d and promptly attend.
--- NOTE | 2017-09-08 20:00 | NUR ---
COWS/CIWA Assessment COWS 12, amb sweats, restlessness, anxiety, nasal congestion, dyspepsia, tremors, and yawning. CIWA 14, amb dyspepsia, hand tremors, diaphoresis, anxiety and agitation, itching, and H/A.
--- NOTE | 2017-09-08 21:58 | NUR ---
PRN Meds Appresoline 10mg PO for BP 161/108, Benedryl 50mg for insomnia, and Clonidine 0.1mg PO for anxiety given. Will continue to monitor, and reassess in 1 hour
[2017-09-08] MEDS: QUETIAPINE FUMARATE 200 MG TABLET PO SCH (21:59)
[2017-09-08] MEDS: ARIPIPRAZOLE 5 MG TABLET PO SCH (21:59)
[2017-09-08] MEDS: TRAZODONE 100 MG TABLET PO SCH (22:00)
--- NOTE | 2017-09-08 22:58 | NUR ---
PRN Reassessment Benedryl for insomnia, Appresoline for HTN and Clonidine for anxiety given 1 hour prior. At present pt reports decreased anxiety, r/o "drowsiness" and BP of 148/98. Meds effective. Will continue to monitor for any s/sx's w/d or distress.
[2017-09-09] VITALS (8 sets, daily range): BP systolic 108–161; BP diastolic 67–104
--- NOTE | 2017-09-09 | NUR ---
Midnight Rounds VS's obtained, COWS and CIWA deferred r/t pt sleeping/refused. RR 16, even and nonlabored. Will continue to monitor for all s/sx's distress or w/d, and promptly attend.
--- NOTE | 2017-09-09 04:00 | NUR ---
COWS/CIWA Assessment COWS 14, amb sweats, restlessness, anxiety, nasal congestion, dyspepsia, tremors, and yawning. CIWA 17, amb dyspepsia, hand tremors, diaphoresis, anxiety and agitation, itching, and H/A, 6/10.
[2017-09-09] MEDS: IBUPROFEN 600 MG TABLET PO PRN ×3 (04:19→21:12)
[2017-09-09] MEDS: CLONIDINE HCL 0.1 MG TABLET PO PRN ×3 (04:29→20:52)
[2017-09-09] MEDS: hydrALAZINE HCL 10 MG TABLET PO PRN ×3 (04:29→20:53)
--- NOTE | 2017-09-09 04:29 | NUR ---
PRN Meds Motrin 600mg PO for H/A, 6/10, Appresoline 10mg PO for BP 142/101, and Clonidine for anxiety given. Will continue to monitor pt, reassessing in 1 hour.
--- NOTE | 2017-09-09 05:29 | NUR ---
PRN Reassessment Clonidine 0.1mg PO for anxiety, Appresoline 10mg PO for HTN, and Motrin 600mg PO for H/A given 1 hour prior. Currently pt reports improvement in H/A, / with improved anxiety, HTN improved with BP 138/96. Meds effective.Will continue to monitor for any s/sx's distress or w/d.
--- NOTE | 2017-09-09 07:15 | NUR ---
End of Shift Endorsement given to [facility] day nurse. Pt admitted 09/05/17 for medically managed withdrawal from ETOH and Opiates. Pt remains on 5 day Valium taper. Pt presents with flat affect, appearing sad and worried. Pt cooperative, lacks insight to triggers, motivation to quit substance use. In addition to w/d symptons, BP issue with pt for shift (Hx of HTN). Appresoline PO and Clonidine PO given x 2 for BP, both times DBP > 100. H/A also treated. PRNs for shift include Appresoline PO x 2, Clonidine PO x2, Benedryl, and Motrin. Pt slept for 6 hrs with 1355 mls intake and 2 voids. Full safety measures remain in place.
--- NOTE | 2017-09-09 07:20 | NUR ---
Start Of Shift: Patient is a 57 yr old male who was admitted to [facility] on 09/05/17 for a medically supervised withdrawal from Alcohol ( Vodka) and opiates ( [place]). He continues on a 5 day Valium taper which has been well tolerated. Patient has a history of Hypertension and PRN meds given on PM shift : Hydralazine x2, Clonidine x2, Benadryl and Motrin. He slept for 6 hours and last COWS 14 and CIWA 17. he is awake at this time and voices no concerns or needs. Continue to follow MD plan of care and offer support as needed.
--- NOTE | 2017-09-09 08:00 | NUR ---
COWS 7/ CIWA 13 Patient withdrawal symptoms include bilateral hand tremors, anxiety, agitation, headache, sensitivity to light and restlessness.
[2017-09-09] MEDS: GABAPENTIN 300 MG CAPSULE PO SCH ×3 (08:28→20:53)
[2017-09-09] MEDS: FOLIC ACID 1 MG TABLET PO SCH (08:28)
[2017-09-09] MEDS: ACETAMINOPHEN 325 MG TABLET PO PRN ×2 (08:28→21:12)
[2017-09-09] MEDS: THIAMINE HCL 100 MG TABLET PO SCH (08:28)
[2017-09-09] MEDS: DIAZEPAM 5 MG TABLET PO SCH ×2 (08:29→20:56)
[2017-09-09] MEDS: AMLODIPINE 10 MG TABLET PO SCH (08:30)
[2017-09-09] MEDS: MULTIVITAMINS,THERAPEUTIC TABLET PO SCH (08:30)
--- NOTE | 2017-09-09 08:30 | NUR ---
PRN Tylenol Tylenol 650 MG Po given for C/O headache 07/04 will reassess
--- NOTE | 2017-09-09 09:30 | NUR ---
PRN Reassess Tylenol 650 mg po effective, headache pain level is now 2/10 Continue to monitor
[2017-09-09] MEDS: METHOCARBAMOL 500 MG TABLET PO PRN (12:01)
--- NOTE | 2017-09-09 12:03 | NUR ---
Robaxin PRN Robaxin 750 MG PO given for headache 08/04 will reassess Addendum: 09/09/17 at 1207 by SANTANA HOROWITZ RN Patient also states he is having lower back pain / spasms
--- NOTE | 2017-09-09 12:20 | NUR ---
COWS 8/ CIWA 15 Patients withdrawal symptoms present as Headache, back ache, stuffy nose, irritability, agitation, restlessness and anxiety
--- NOTE | 2017-09-09 12:30 | NUR ---
PRN Clonidine/Hydralazine Clonidine 0.1mg PO and Hydralazine 10MG Po given for BP 154/104, HR 78 Will reassess
--- NOTE | 2017-09-09 13:13 | NUR ---
Client was prompted to attend daily group counseling sessions.
--- NOTE | 2017-09-09 13:45 | NUR ---
PRN Reassess Clonidine 0.1MG PO and Hydralazine 10MG PO effective, BP now 108/67, HR 76 Continue to monitor
--- NOTE | 2017-09-09 15:30 | NUR ---
PRN Motrin Motrin 600 MG PO given for Headache 510 will reassess
--- NOTE | 2017-09-09 15:46 | NUR ---
COWS 7 / CIWA 13 Patient presents with withdrawal symptoms that include headache, irritability, elevated BP and flushed face.
--- NOTE | 2017-09-09 16:30 | NUR ---
Motrin Reassess Patient states he has no pain at this time, Motrin effective
--- NOTE | 2017-09-09 18:52 | NUR ---
End Of Shift : Patient is a 57 yr old male who was admitted to [facility] on 09/05/17 for a medically supervised withdrawal from Alcohol ( Vodka ) and Opiates ( [place]). He has a medical history of Hypertension which has been treated today with PRN Clonidine and Hydralazine in addition to his scheduled Norvasc. BP 154/104 but after PRN medications 108/67. He has complained of headaches throughout shift which has been alleviated with Motrin 600mg and Tylenol 650 MG . PRN medications given on this shift: Tylenol, Robaxin, Clonidine, Motrin and hydralazine. He has attended all groups today and is interacting with his peers. His withdrawal symptoms today have included anxiety and irritability, increased blood pressure and flushed face. He had a fluid intake of 1800 ML, 4 Voids and 0 BM. Last COWS 7 and CIWA 13 @ 1600. Continue to follow MD plan of care and offer support as needed. Endorsed to short goods drier.
--- NOTE | 2017-09-09 19:30 | NUR ---
START OF SHIFT Pt is a 57 y/o male admitted on 09/05/17 for ETOH and opiate withdrawal. Pt was on a 5 Valium taper, last dose tonight discontinued and is scheduled to be d/c tomorrow. Last COWS 7 and CIWA 13 and PRN Tylenol, Motrin, Robaxin, Clonidine and Hydralazine administered during day shift. Pt denies S/S of withdrawal but presents with anxiety, agitation, restlessness, tremors, insomnia, increased BP, intermittent sweats, unkempt room and flat affect. Medications due. Safety measures in place. Call light within reach. Will continue to monitor. Addendum: 09/10/17 at 0001 by FIDEL CONLEY RN ADDITIONAL: Pt also complains of left wrist, back pain and headache.
--- NOTE | 2017-09-09 20:00 | NUR ---
COWS 6 AND CIWA 10 Pt presents with anxiety, agitation, restlessness, tremors, insomnia, increased BP, intermittent sweats, intermittent headache.
[2017-09-09] MEDS: QUETIAPINE FUMARATE 200 MG TABLET PO SCH (20:52)
[2017-09-09] MEDS: diphenhydrAMINE 50 MG CAPSULE PO PRN (20:52)
[2017-09-09] MEDS: TRAZODONE 100 MG TABLET PO SCH (20:53)
--- NOTE | 2017-09-09 20:53 | NUR ---
APURVAN BENADRYL, CLONIDINE, HYDRALAZINE ADMINISTRATION Pt requests sleep aid, pt reports severe difficulty falling and staying asleep, anxiety, agitation, intermittent sweats. BP 161/100 and HR 83. Safety measures in place. Call light within reach. Will continue to monitor. Addendum: 09/10/17 at 0008 by FIDEL CONLEY RN Additional: Pt states, "I will only be able to fall asleep if I take my scheduled Trazodone and Seroquel along with Benadryl...That's what helped me sleep last night."
[2017-09-09] MEDS: ARIPIPRAZOLE 5 MG TABLET PO SCH (20:56)
--- NOTE | 2017-09-09 21:12 | NUR ---
PRN TYLENOL AND MOTRIN ADMINISTRATION Pt reports pain in left wrist, lower back and headache 8/10 overall pain. Pt reports that Motrin and Tylenol together was effective previously. Safety measures in place. Call light within reach. Will continue to monitor.
--- NOTE | 2017-09-09 21:53 | NUR ---
PRN BENADRYL, CLONIDINE AND HYDRALAZINE REASSESSMENT Pt remains awake, laying in bed watching TV. Pt states, "I am trying to let myself fall asleep." BP 128/84 and HR 79. Safety measures in place. Call light within reach. Will continue to monitor.
--- NOTE | 2017-09-09 22:53 | NUR ---
PRN TYLENOL AND MOTRIN REASSESSMENT Pt reports headache has ceased and pain in left wrist and lower back are tolerable. Safety measures in place. Call light within reach. Will continue to monitor.
[2017-09-10] VITALS: BP 126/82
--- NOTE | 2017-09-10 | NUR ---
COWS 5 AND CIWA 9 Pt presents with anxiety, agitation, restlessness. Pt is taking frequent smoking breaks.
[2017-09-10] MEDS ORDERED: HYDR-4075 PO (00:21)
--- NOTE | 2017-09-10 04:00 | NUR ---
COWS/CIWA DEFERRED AND VITALS REFUSED Pt laying in bed with eyes closed, COWS/CIWA deferred, to be assessed when pt is awake per orders. Vitals refused. Respirations even and unlabored. Safety measures in place. Call light within reach. Will continue to monitor.
[2017-09-10 05:40] VITALS: BP 147/106
[2017-09-10] MEDS: IBUPROFEN 600 MG TABLET PO PRN (05:44)
[2017-09-10] MEDS: METHOCARBAMOL 500 MG TABLET PO PRN (05:44)
--- NOTE | 2017-09-10 05:44 | NUR ---
PRN HYDRALAZINE, MOTRIN AND ROBAXIN ADMINISTERED BP 147/106 and HR 83. Pt complains of headache and body aches 08/04. Pt appears uncomfortable. Safety measures in place. Call light within reach. Will continue to monitor.
[2017-09-10] MEDS: hydrALAZINE HCL 10 MG TABLET PO PRN (05:45)
--- NOTE | 2017-09-10 06:44 | NUR ---
PRN HYDRALAZINE, MOTRIN AND ROBAXIN REASSESSMENT BP 131/84 and HR 79. Pt reports pain is at tolerable level, appears comfortable. Safety measures in place. Call light within reach. Will continue to monitor.
--- NOTE | 2017-09-10 07:06 | NUR ---
END OF SHIFT Pt is a 57 y/o male admitted on 09/05/17 for ETOH and opiate withdrawal. Pt finished a 5 Valium taper and is scheduled to be d/c today. Pt presented with anxiety, agitation, restlessness, tremors, insomnia, increased BP, intermittent sweats, unkempt room and flat affect. Pt had multiple smoke breaks throughout shift. Pt woke up at 0540 and requested for his vitals to be taken, pt states, I feel like my blood pressure is elevated, and complained of headache. Scheduled medications and PRN Benadryl, Clonidine, Hydralazine x 2, Robaxin, Tylenol and Motrin x 2 administered, effective in S/S of withdrawal AEB COWS 6 and CIWA 10 lowered to COWS 5 and CIWA 9. Pt slept 5 hours. Intake 855 ml, void x 2, stool x 0. Safety measures in place. Call light within reach. Pts needs have been met. Endorsed to day shift nurse.
--- NOTE | 2017-09-10 07:30 | NUR ---
Start of Shift Gym Supervisor received report on 57 year old male admitted 09/05/17 for medical management of ETOH and [place] withdrawals. Pt endorses NKA, full code and regular diet. Pt with PMH of HTN and Asthma, denies any seizure history. Endorses a PPH of anxiety, bipolar and ADHD. Pt has completed Subutex and Valium tapers in preparation of discharge this am. Pts last CIWA 9 and COWS 5 per report. Pt administered Benadryl(insomnia), Clonidine(HTN), Hydralazine(HTN) x2, Motrin(pain) x2, Tylenol(pain) and Robaxin(general muscle relief) as PRN medications on NOC, per report. Gym Supervisor encounters pt in hallway. Pt is A/O x4 and makes his needs known. Anxious and restless about discharge. Pt is planning on leaving to self care and states, I am going to go to IOP. Pt encouraged to wait for case management for appropriate discharge plan. Pt with a linear though process and clear speech pattern. Bed in low position with wheels locked and side rails up x2. Will continue to monitor, support and encourage according to plan of care.
--- NOTE | 2017-09-10 08:00 | NUR ---
CIWA 7/COWS 6 Pt is anxious and restless, at nurses station often. Will continue to monitor, support and encourage according to plan of care.
[2017-09-10 08:12] VITALS: BP 161/112
[2017-09-10 08:22] VITALS: BP 161/112
[2017-09-10] MEDS: CLONIDINE HCL 0.1 MG TABLET PO PRN (08:22)
[2017-09-10] MEDS: AMLODIPINE 10 MG TABLET PO SCH (08:22)
[2017-09-10] MEDS: MULTIVITAMINS,THERAPEUTIC TABLET PO SCH (08:22)
[2017-09-10] MEDS: GABAPENTIN 300 MG CAPSULE PO SCH (08:22)
[2017-09-10] MEDS: THIAMINE HCL 100 MG TABLET PO SCH (08:22)
[2017-09-10] MEDS: FOLIC ACID 1 MG TABLET PO SCH (08:22)
--- NOTE | 2017-09-10 08:22 | NUR ---
PRN Clonidine Pt's BP: 161/112. Pt administered medication per MD order and parameters. With pt tolerating well. Will continue to monitor, support and encourage according to plan of care.
--- NOTE | 2017-09-10 09:30 | NUR ---
PRN RE-Assessment BP: 131/88 P: 79. Stable for discharge
--- NOTE | 2017-09-10 10:26 | NUR ---
Discharge Pt educated on discharge diagnosis, education material and importance of continued sobriety and follow-up care. Pt educated and provided written material related to pt's discharge diagnosis and treatment plan. Pt educated on medication name, route, dose, time and indication. Pt denies any further comments, questions or concerns. Pt is anxious and cooperative with process. Pt is needy and pushes for paperwork to be completed. At nurses station often. Pt with a linear thought process and cleat speech pattern. A/O x4 and makes needs known. Pr denies HI/SI or A/VH. Pt is escorted to the main lobby where pt is providing for his own transportation home. Pt endorses going to an [facility] for aftercare program and refuses all attempts by discharge planning to coordinate a discharge care plan.
== END 2017-09-10 10:26 | disposition home or self-care (01) | DRG 895 ==
LOC: SRC 13:13
PROVIDERS: ADMIT Family Medicine Addiction Medicine; ATTEND Family Medicine Addiction Medicine
PROC: HZ2ZZZZ Detoxification Services for Substance Abuse Treatment (ICD-10-PCS; principal; 2017-09-05)
PROC: HZ41ZZZ Group Counseling for Substance Abuse Treatment, Behavioral (ICD-10-PCS; 2017-09-08)
PROC: HZ31ZZZ Individual Counseling for Substance Abuse Treatment, Behavioral (ICD-10-PCS; 2017-09-08)
DX: F10.239 Alcohol dependence with withdrawal, unspecified (principal); F33.2 Major depressive disorder, recurrent severe without psychotic features; F11.23 Opioid dependence with withdrawal; Y90.0 Blood alcohol level of less than 20 mg/100 ml; I10 Essential (primary) hypertension; F41.9 Anxiety disorder, unspecified; Z82.3 Family history of stroke; Z79.899 Other long term (current) drug therapy; Z81.8 Family history of other mental and behavioral disorders; Z72.0 Tobacco use; Z87.81 Personal history of (healed) traumatic fracture; R73.9 Hyperglycemia, unspecified
CPT/HCPCS: 36415; 70030-TC; 80307; 80324; 80346; 80361; 83690; 83735; 85025; 86580; 86592; 86705; 86803; 87340; 87806; G0480; J3411; Q0163

== ENCOUNTER 2018-01-06 11:42 | Inpatient (IN) | payer BC, OTHER ==
[~2018-01-06] VITALS: Ht 185.4 cm; Wt 89.4 kg
[~2018-01-06 11:42] MED LIST changes: -AMLO10TA2 PO; +AMLO10TA6 PO; +HYDR-4075 PO
[2018-01-06 13:00] VITALS: BP 171/102
[2018-01-06 14:25] VITALS: BP 168/102
[2018-01-06] MEDS ORDERED: LORAZEPAM 2 MG/1 ML VIAL IM PRN (14:30)
[2018-01-06] MEDS ORDERED: THIAMINE HCL 200 MG/2 ML VIAL IM ONE (14:30)
[2018-01-06] MEDS ORDERED: ONDANSETRON 4 MG/2 ML VIAL IM PRN (14:30)
[2018-01-06] MEDS ORDERED: MAG HYDROX/AL HYDROX/SIMETH 30 ML LIQUID UDC PO PRN (14:30)
[2018-01-06] MEDS ORDERED: MAGNESIUM HYDROXIDE 30 ML LIQUID UDC PO PRN (14:30)
[2018-01-06] MEDS: THIAMINE HCL 100 MG TABLET PO SCH (14:30)
[2018-01-06] MEDS ORDERED: DIAZEPAM 5 MG TABLET PO PRN (14:30)
[2018-01-06] MEDS ORDERED: ONDANSETRON ODT 4 MG TAB.RAPDIS SL PRN (14:30)
[2018-01-06] MEDS ORDERED: 5 DAY TAPER VALIUM-SERENITY PROTOCOL PO PRN (14:30)
[2018-01-06] MEDS ORDERED: DIAZEPAM 10 MG TABLET PO PRN ×2 (14:30)
[2018-01-06] MEDS ORDERED: diphenhydrAMINE 50 MG CAPSULE PO PRN (14:30)
[2018-01-06] MEDS ORDERED: LOPERAMIDE HCL 2 MG CAPSULE PO PRN ×2 (14:30)
[2018-01-06] MEDS: DIAZEPAM 10 MG TABLET PO SCH ×3 (14:53→20:43)
[2018-01-06] MEDS ORDERED: GABA600T2 PO (14:55)
[2018-01-06] MEDS: AMLODIPINE 10 MG TABLET PO SCH (15:01)
[2018-01-06 15:10] LABS: *AMPHETAMINE, URINE NEGATIVE (NEGATIVE); *BARBITURATE, URINE NEGATIVE (NEGATIVE); *CANNABINOID, URINE NEGATIVE (NEGATIVE); *COCCAINE, URINE NEGATIVE (NEGATIVE); *OPIATE, URINE POSITIVE (NEGATIVE); *PHENCYCLIDINE SCREEN,URINE NEGATIVE (NEGATIVE)
[2018-01-06 16:40] LABS: BASOPHILS % (AUTO) 0.5 % (0.0-2.0); EOSINOPHILS # (AUTO) 0.1 K/uL (0.0-0.7); EOSINOPHILS % (AUTO) 1.1 % (0.0-7.0); HEMATOCRIT 44.2 % (36.7-47.1); HEMOGLOBIN 15.4 g/dL (12.5-16.3); LYMPHOCYTES # (AUTO) 1.7 K/uL (20.0-40.0); LYMPHOCYTES % (AUTO) 23.8 % (20.5-51.5); MEAN CORPUSCULAR HEMOGLOBIN 33.9 uug (23.8-33.4); MEAN CORPUSCULAR HGB CONC 35 g/dL (32.5-36.3); MEAN CORPUSCULAR VOLUME 97.5 fL (73.0-96.2); MONOCYTES # (AUTO) 0.4 K/uL (2.0-10.0); MONOCYTES % (AUTO) 5.2 % (0.0-11.0); NEUTROPHILS % (AUTO) 69.4 % (38.5-71.5); PLATELET COUNT (AUTO) 234 K/uL (152-348); RED BLOOD CELL COUNT(AUTO) 4.53 MIL/uL (4.06-5.63); WHITE BLOOD COUNT (AUTO) 7.2 K/uL (3.6-10.2)
[2018-01-06] MEDS ORDERED: ARIP5TAB10 PO (16:46)
[2018-01-06 16:54] LABS: ALANINE AMINOTRANSFERASE 48 U/L (16-63); ALKALINE PHOSPHATASE 49 U/L (50-136); AMYLASE 35 U/L (25-115); ASPARTATE AMINOTRANSFERASE 32 U/L (15-37); BILIRUBIN,TOTAL 0.3 mg/dL (0.2-1.0); CARBON DIOXIDE 26 mmol/L (21-32); CHLORIDE 103 mmol/L (98-107); CREATININE 1.1 mg/dL (0.6-1.3); GLUCOSE 125 mg/dL (74-106); LIPASE 416 U/L (73-393); POTASSIUM 3.8 mmol/L (3.5-5.1); TOTAL PROTEIN, SERUM 7.3 g/dL (6.4-8.2); UREA NITROGEN, BLOOD 21 mg/dL (7-18)
[2018-01-06] MEDS: GABAPENTIN 300 MG CAPSULE PO SCH (17:02)
[2018-01-06 17:03] LABS: THYROID STIMULATING HORMONE 0.854 mIU/mL (0.358-3.740)
[2018-01-06] MEDS: CLONIDINE HCL 0.1 MG TABLET PO PRN (17:03)
[2018-01-06 17:06] LABS: ETHANOL < 3 MG/DL (0-0)
[2018-01-06 18:00] VITALS: BP 158/99
[2018-01-06] MEDS: METHOCARBAMOL 750 MG TABLET PO PRN (19:40)
[2018-01-06] MEDS ORDERED: TRAZ300T2 PO (19:43)
[2018-01-06] MEDS ORDERED: QUET200T PO (19:43)
[2018-01-06 20:00] VITALS: BP 142/98
[2018-01-06] MEDS ORDERED: QUETIAPINE FUMARATE 200 MG TABLET PO ONE (21:00)
[2018-01-07] VITALS (7 sets, daily range): BP systolic 135–162; BP diastolic 88–112
[2018-01-07] MEDS: CLONIDINE HCL 0.1 MG TABLET PO PRN ×2 (04:00→20:03)
[2018-01-07] MEDS ORDERED: hydrALAZINE HCL 25 MG TABLET PO ONE (05:15)
[2018-01-07 06:10] LABS: HEPATITIS B SURFACE AG Negative (Negative)
[2018-01-07] MEDS: THIAMINE HCL 100 MG TABLET PO SCH (08:14)
[2018-01-07] MEDS: MULTIVITAMINS,THERAPEUTIC TABLET PO SCH (08:14)
[2018-01-07] MEDS: AMLODIPINE 10 MG TABLET PO SCH (08:14)
[2018-01-07] MEDS: GABAPENTIN 300 MG CAPSULE PO SCH ×3 (08:14→16:28)
[2018-01-07] MEDS: DIAZEPAM 5 MG TABLET PO SCH ×4 (08:15→20:04)
[2018-01-07] MEDS: METHOCARBAMOL 750 MG TABLET PO PRN ×2 (08:18→16:31)
[2018-01-07] MEDS: FOLIC ACID 1 MG TABLET PO SCH (08:55)
[2018-01-07] MEDS ORDERED: TUBERCULIN,PURIF.PROT.DERIV. 5 TU/0.1 ML TEST ID ONE (09:00)
[2018-01-07] MEDS: hydrALAZINE HCL 25 MG TABLET PO PRN (16:38)
[2018-01-07] MEDS: QUETIAPINE FUMARATE 200 MG TABLET PO SCH (20:42)
[2018-01-08] VITALS: BP 139/99
[2018-01-08 04:00] VITALS: BP 138/97
[2018-01-08 08:00] VITALS: BP 158/109
[2018-01-08] MEDS: METHOCARBAMOL 750 MG TABLET PO PRN ×2 (08:51→19:43)
[2018-01-08] MEDS: THIAMINE HCL 100 MG TABLET PO SCH (08:51)
[2018-01-08] MEDS: IBUPROFEN 600 MG TABLET PO PRN (08:51)
[2018-01-08] MEDS: AMLODIPINE 10 MG TABLET PO SCH (08:52)
[2018-01-08] MEDS: FOLIC ACID 1 MG TABLET PO SCH (08:52)
[2018-01-08] MEDS: MULTIVITAMINS,THERAPEUTIC TABLET PO SCH (08:52)
[2018-01-08] MEDS: hydrALAZINE HCL 25 MG TABLET PO PRN ×2 (08:52→19:43)
[2018-01-08] MEDS: DIAZEPAM 5 MG TABLET PO SCH ×3 (08:53→20:37)
[2018-01-08] MEDS: GABAPENTIN 300 MG CAPSULE PO SCH ×3 (08:53→16:37)
[2018-01-08 12:00] VITALS: BP 139/106
[2018-01-08] MEDS: CLONIDINE HCL 0.1 MG TABLET PO PRN (12:19)
[2018-01-08 16:00] VITALS: BP 138/104
[2018-01-08 20:11] VITALS: BP 159/100
[2018-01-08] MEDS: QUETIAPINE FUMARATE 200 MG TABLET PO SCH (20:37)
[2018-01-08] MEDS: HYDROXYZINE PAMOATE 25 MG CAPSULE PO PRN (22:45)
[2018-01-08] MEDS: ropiniROLE 1 MG TABLET PO PRN (22:45)
[2018-01-09 08:00] VITALS: BP 148/101
[2018-01-09] MEDS: FOLIC ACID 1 MG TABLET PO SCH (08:17)
[2018-01-09] MEDS: hydrALAZINE HCL 25 MG TABLET PO PRN ×2 (08:18→16:39)
[2018-01-09] MEDS: MULTIVITAMINS,THERAPEUTIC TABLET PO SCH (08:18)
[2018-01-09] MEDS: HYDROXYZINE PAMOATE 25 MG CAPSULE PO PRN (08:18)
[2018-01-09] MEDS: GABAPENTIN 300 MG CAPSULE PO SCH ×3 (08:18→16:37)
[2018-01-09] MEDS: IBUPROFEN 600 MG TABLET PO PRN ×2 (08:18→16:37)
[2018-01-09] MEDS: METHOCARBAMOL 750 MG TABLET PO PRN ×2 (08:18→16:37)
[2018-01-09] MEDS: THIAMINE HCL 100 MG TABLET PO SCH (08:19)
[2018-01-09] MEDS: AMLODIPINE 10 MG TABLET PO SCH (08:19)
[2018-01-09] MEDS: DIAZEPAM 5 MG TABLET PO SCH ×2 (08:19→21:50)
[2018-01-09 12:00] VITALS: BP 142/104
[2018-01-09] MEDS: CLONIDINE HCL 0.1 MG TABLET PO PRN ×2 (12:07→19:52)
[2018-01-09 16:00] VITALS: BP 147/107
[2018-01-09 20:11] VITALS: BP 141/109
[2018-01-09] MEDS: QUETIAPINE FUMARATE 200 MG TABLET PO SCH (21:50)
[2018-01-10] MEDS: hydrALAZINE HCL 25 MG TABLET PO PRN ×3 (06:34→19:39)
[2018-01-10 08:00] VITALS: BP 132/87
[2018-01-10] MEDS: MULTIVITAMINS,THERAPEUTIC TABLET PO SCH (08:31)
[2018-01-10] MEDS: THIAMINE HCL 100 MG TABLET PO SCH (08:31)
[2018-01-10] MEDS: GABAPENTIN 300 MG CAPSULE PO SCH ×3 (08:31→16:36)
[2018-01-10] MEDS: FOLIC ACID 1 MG TABLET PO SCH (08:31)
[2018-01-10] MEDS: METHOCARBAMOL 750 MG TABLET PO PRN ×2 (08:36→16:38)
[2018-01-10] MEDS ORDERED: DIAZEPAM 5 MG TABLET PO SCH (09:00)
[2018-01-10] MEDS: AMLODIPINE 10 MG TABLET PO SCH (09:22)
[2018-01-10 12:00] VITALS: BP_SYST 113; BP_SYST 142; BP_DIAS 114; BP_DIAS 60
[2018-01-10] MEDS ORDERED: METH-406 PO (13:35)
[2018-01-10] MEDS ORDERED: HYDR25TA86 PO (13:35)
[2018-01-10] MEDS ORDERED: GABA600T2 PO (13:35)
[2018-01-10] MEDS ORDERED: AMLO10TA6 PO (13:35)
[2018-01-10] MEDS ORDERED: HYDR-3895 PO (13:35)
[2018-01-10] MEDS ORDERED: CLON0.1T14 PO (13:35)
[2018-01-10 16:00] VITALS: BP 145/71
[2018-01-10 20:11] VITALS: BP 153/109
[2018-01-10] MEDS: ropiniROLE 1 MG TABLET PO PRN (22:12)
[2018-01-10] MEDS: QUETIAPINE FUMARATE 200 MG TABLET PO SCH (22:13)
[2018-01-11] MEDS: IBUPROFEN 600 MG TABLET PO PRN (06:00)
[2018-01-11 08:00] VITALS: BP 147/108
[2018-01-11] MEDS: AMLODIPINE 10 MG TABLET PO SCH (08:11)
[2018-01-11] MEDS: MULTIVITAMINS,THERAPEUTIC TABLET PO SCH (08:11)
[2018-01-11] MEDS: FOLIC ACID 1 MG TABLET PO SCH (08:11)
[2018-01-11] MEDS: THIAMINE HCL 100 MG TABLET PO SCH (08:11)
[2018-01-11] MEDS: GABAPENTIN 300 MG CAPSULE PO SCH (08:11)
[2018-01-11] MEDS: METHOCARBAMOL 750 MG TABLET PO PRN (08:11)
[2018-01-11 08:12] VITALS: BP 147/108
[2018-01-11] MEDS: hydrALAZINE HCL 25 MG TABLET PO PRN (08:12)
== END 2018-01-11 09:43 | disposition home or self-care (01) | DRG 895 ==
LOC: SRC 12:44
PROVIDERS: ADMIT Family Medicine Addiction Medicine; ATTEND Family Medicine Addiction Medicine
PROC: HZ2ZZZZ Detoxification Services for Substance Abuse Treatment (ICD-10-PCS; principal; 2018-01-06)
PROC: HZ41ZZZ Group Counseling for Substance Abuse Treatment, Behavioral (ICD-10-PCS; 2018-01-07)
PROC: HZ31ZZZ Individual Counseling for Substance Abuse Treatment, Behavioral (ICD-10-PCS; 2018-01-08)
DX: F10.230 Alcohol dependence with withdrawal, uncomplicated (principal); F11.23 Opioid dependence with withdrawal; Y90.0 Blood alcohol level of less than 20 mg/100 ml; Z90.49 Acquired absence of other specified parts of digestive tract; Z82.3 Family history of stroke; Z72.0 Tobacco use; Z65.3 Problems related to other legal circumstances; F41.1 Generalized anxiety disorder; I10 Essential (primary) hypertension; Z79.899 Other long term (current) drug therapy; G47.00 Insomnia, unspecified
CPT/HCPCS: 36415; 70030-TC; 80307; 80361; 83690; 83735; 84443; 85025; 86580; 86592; 86705; 86803; 87340; 87806; A4663; G0480; J3411